=== PATIENT | male | born 1940 | race Caucasian/White ===

== ENCOUNTER 2017-12-25 10:34 | Day surgery (SDC) | payer MEDICARE, OTHER ==
[~2017-12-25 10:34] MED LIST: ACETAMINOPHEN 325 MG TABLET PO PRN; ACETYLCHOLINE CHLORIDE 20 DROP KIT IO PRN; BUPIVACAINE HCL/PF 30 ML VIAL IJ PRN; CYCLOPENTOLATE HCL 20 DROP BTL RIGHTEYE PRN; DEXTROSE 5%-0.5 NORMAL SALINE 1,000 ML IV PRN; EPINEPHrine 1 MG/ML AMPUL IO PRN; HYALURONATE SODIUM 0.4 ML DISP.SYRIN IO PRN; HYALURONATE SODIUM 0.85 ML DISP.SYRIN IO PRN; LIDOCAINE HCL/PF 200 MG/5 ML AMPUL TP PRN; LIDOCAINE HCL/PF 5 ML VIAL IO PRN; NORMAL SALINE 3 ML BOX IV PRN; TETRACAINE HCL 150 DROP BTL OP PRN
[2017-12-25] MEDS: PHENYLEPHRINE HCL 50 DROP BTL RIGHTEYE PRN ×3 (11:45→12:29)
[2017-12-25] MEDS: TROPICAMIDE 150 DROP BTL RIGHTEYE PRN ×3 (11:45→12:29)
[2017-12-25] MEDS ORDERED: DEXTROSE 5%-0.5 NORMAL SALINE 1,000 ML IV ONE (11:50)
[2017-12-25 14:46] VITALS: BP 183/69
== END 2017-12-25 10:35 | disposition home or self-care (01) ==
LOC: AMB 10:34
PROVIDERS: ATTEND Ophthalmology
PROC: 08RJ3JZ Replacement of Right Lens with Synthetic Substitute, Percutaneous Approach (ICD-10-PCS; principal; 2017-12-25)
DX: H26.8 Other specified cataract (principal); I10 Essential (primary) hypertension; E78.5 Hyperlipidemia, unspecified; Z87.891 Personal history of nicotine dependence; Z68.24 Body mass index [BMI] 24.0-24.9, adult

== ENCOUNTER 2018-09-23 10:39 | Inpatient (IN) | payer MEDICARE, OTHER ==
--- NOTE | 2018-09-23 10:52 | ERNOTE ---
Medical Problem HPI - Narrative Date of Service: 09/23/18 - General Chief Complaint: General Assessment Time Seen by Provider: 09/23/18 10:52 Source: patient Exam Limitations: no limitations - Immun/Allergies/Home Medications Immunizations: IMMUNIZATION HX History of Influenza Vaccine No Hx Pneumococcal Vaccination No Allergies/Adverse Reactions: Allergies diclofenac Adverse Reaction (Intermediate, Verified 09/23/18 13:02) BP "WILI ROCKETS" Home Medications: HOME MEDICATIONS Latanoprost [Xalatan] 1 drop EACHEYE HS 08/03/16 [Last Taken Unknown] Lisinopril [Zestril] 40 mg PO DAILY 08/03/16 [Last Taken 01/22/18 07:30] - Pain Score Pain Score #1 Pain Score: 0 - History of Present History Narrative: The patient is a 78 year old male who presents for numbness to fingers and toes bilateral which has been present since 0530. There are no associated symptoms. The patient denies pain. There are no alleviating factors. There are no aggravating factors. Previous treatments have included: none. The past medical history includes: HTN and cataract. The social history is negative. The patient has had no ill contacts. Patient states that when he awoke to use the restroom this am at 0530 he noticed numbness to bilateral hands and feet. Patient denies weakness or difficulty with ambulation. Patient upon arrival having left arm and left leg weakness with drift. Patient also appears slower to respond to questions but remains oriented x3. Patient states that he slid out of bed approximately 18 inches to floor 3 days ago without injury. Review of Systems - Review of Systems Constitutional: Present: no symptoms reported. Absent: recent illness, fever, weakness EYE: Present: no symptoms reported. Absent: vision changes ENT: Present: no symptoms reported. Absent: ear pain, nasal drainage, sore throat Respiratory: Present: no symptoms reported. Absent: shortness of breath, cough Cardiology: Present: no symptoms reported. Absent: chest pain Gastrointestinal/Abdominal: Present: no symptoms reported. Absent: nausea, vomiting, diarrhea, abdominal pain Genitourinary: Present: no symptoms reported. Absent: dysuria Musculoskeletal: Present: no symptoms reported Skin: Present: no symptoms reported. Absent: rash Neurological: Present: numbness, tingling. Absent: dizziness/light-headedness, weakness Endocrine: Present: no symptoms reported Hematologic/Lymphatic: Present: no symptoms reported Psych: Present: no symptoms reported All Other Systems: All systems neg except as marked Medical History (Last Reviewed 09/23/18 @ 11:03 by MATEO Marquez) Hypertension Cataract Surgical History: Surgical History (Last Reviewed 09/23/18 @ 11:03 by MATEO Marquez) H/O arthroscopic knee surgery Social History: Preferred Language Fijian Abuse History No History of abuse Psych History No pertinent hx Alcohol Use none Drug Use none No Social History Section defined Physical Exam - Physical Exam General Appearance: Present: wd/wn, alert, no apparent distress Head Exam: Present: normal inspection, no evidence of injury Eye Exam: Normal inspection: bilateral, PERRL: bilateral, EOMI: bilateral Ears, Nose, Throat: Present: normal ENT inspection, normal pharynx Neck: Present: normal inspection Respiratory: Present: no respiratory distress, normal breath sounds, lungs clear Cardiovascular/Chest: Present: regular rate, rhythm, no murmur, extra beats - PVCs Peripheral Pulses: N=norm/S=strong/W=weak/B=bound/A=absent: Radial (R): Normal Gastrointestinal/Abdominal: Present: normal bowel sounds, nontender, nondistended, soft, no organomegaly Neurological Exam: Present: alert, oriented, normal mood/affect, motor weakness - left upper and lower extremity weakness, left sided drift Skin Exam: Present: normal color, warm/dry ED Progress - Date and Time Seen: Date and Time: 09/23/18 11:39 Discussed care with . Plan for admission with inpatient MRI tomorrow. - Results and Orders Patient's Lab Results:: I have reviewed the patient's lab results. - Vital Signs Patient's Vital Signs:: I have reviewed the patient's vital signs. Vital Signs: Vital Signs 09/23/18 10:43 09/23/18 10:48 Temperature 36.7 C Pulse Rate 72 71 Respiratory Rate 12 13 Blood Pressure 208/84 H O2 Sat by Pulse Oximetry 97 97 - EKG EKG: NSR, other - PVC's EKG read: Reviewed by me EKG Comments: Reviewed with . - CT/Ultrasound CT/Ultrasound Narrative: Argus interpretation: No acute intracranial hemorrhage or mass-effect. - Progress/Reassessment Chief Complaint: General Assessment Progress:: Unchanged Plan - Plan Plan: Patient will be admitted for observation with follow up inpatient MRI. Departure Clinical Impression: Stroke-like symptoms, Weakness Hypertension Qualifiers: Hypertension type: essential hypertension Qualified Code(s): I10 - Essential (primary) hypertension - Departure Disposition: Still a patient Condition: Stable NIHSS - Date/Time of assessment Stroke Scale Time: 11:00 - NIH Stroke Scale Level of Consciousness: Alert LOC Questions (Year and Age): Answers both correctly LOC Commands (open/close eyes/fist): Performs both correctly Lateral Gaze Paresis: None Visual Field Loss: No visual loss Facial Palsy: Normal movement Right Arm Motor (10 sec hold): No drift Left Arm Motor (10 sec hold): Drift, effort made Right Leg Motor (5 sec hold): No drift Left Leg Motor (5 sec hold): Drift, effort made Limb Ataxia (finger/nose heel/smith): Present in 2 limbs If present, ataxia in:: Left arm, Left leg Sensory Loss (pinprick arms/legs/face): No sensory loss Language Aphasia (description/naming/reading): No aphasia; normal Dysarthria (speech clarity): Normal articulation Neglect Inattention (visual/tactile/auditory/spatial/person): No neglect Initial Stroke Scale Score:: 6
[2018-09-23 11:21] LABS: Hematocrit 48.5 % (42.0-52.0); Mean Cell Volume 85.7 fl (78-100); Mean Corpuscular Hgb Conc 35.1 g/dl (32-36); Mean Platelet Volume 8.6 fl (8-11.3); Neutrophil # 4.8 K/mm3 (1.3-6.0); Neutrophil % 74.4 % (42-75.0); Platelet Count 249 K/mm3 (150-450); Red Blood Count 5.66 M/mm3 (4.7-6.0); White Blood Count 6.5 K/mm3 (4.0-10.5)
[2018-09-23 11:43] LABS: Prothrombin Time (Patient) 10.7 Seconds (9.0-11.0)
[2018-09-23 11:44] LABS: INR 1.07 INR (0.90-1.10); Partial Thrombolplastin Time 25.9 Seconds (24-32)
[2018-09-23 11:47] LABS: Albumin * 4.3 gm/dl (3.4-5.0); Anion Gap 12.2 mmol/L (6.8-13.8); BUN/Creatinine Ratio 11.8 (9.0-21.6); Bilirubin, Total 1.3 mg/dL (0.0-1.1); Ca. Corrected For Albumin 7.9 mg/dL (8.4-10.2); Calcium * 8.5 mg/dL (7.9-10.9); Potassium 4.2 mmol/L (3.4-4.6); Total Protein 8.2 gm/dL (6.2-8.2)
[2018-09-23] MEDS ORDERED: LABETALOL HCL 5 MG/ML VIAL IV ONE ×2 (12:17→12:18)
[2018-09-23] MEDS ORDERED: ASPIRIN 325 MG TABLET.DR PO ONE (14:03)
--- NOTE | 2018-09-23 14:45 | HP ---
Chief Complaint - Chief Complaint Date of Service: 09/23/18 Time of Service: 14:20 Chief Complaint: left sided weakness History of Present Illness: Patient with PMHx of HTN woke today with numbness in his fingers and toes, and urinary incontinence. None of this has happened to him in the past. Symptoms have not significantly improved. Negative CT head. Family members have had a virus lately. Family members notice he is slow to answer questions, which is highly unusual for him. No significant abnormalities on labs. His BP is elevated, to 208/105, and received a small dose of labetalol in the ED. Medical History (Last Reviewed 09/23/18 @ 13:03 by Mariza Pineda RN) Hypertension Cataract Surgical History: Surgical History (Last Reviewed 09/23/18 @ 13:03 by Mariza Pineda RN) H/O arthroscopic knee surgery Social History: Patient Lives/Resources Home Utilized Preferred Language Stateless Do you have any confucianist or No cultural preference? Smoking Status Former smoker Have you smoked in the past 12 No months Abuse History No History of abuse Psych History No pertinent hx Alcohol Use none Drug Use none No Social History Section defined Review Of Systems (GEN) - Review of Systems Generalized/Overall Review: Absent: Fever Respiratory: Absent: Cough, Shortness of Breath Cardiac: Absent: Chest Pain, Edema, Syncope Abdominal: Absent: Nausea, Vomiting, Diarrhea Genitourinary: Present: Incontinent Neurological: Present: Numbness, Weakness - left sided. Absent: Seizure Immunizations: IMMUNIZATION HX History of Influenza Vaccine No Hx Pneumococcal Vaccination No Allergies/Adverse Reactions: Allergies Allergy/AdvReac Type Severity Reaction Status Date / Time diclofenac AdvReac Intermediate BP "WILI Verified 09/23/18 13:02 ROCKETS" Home Medications: HOME MEDICATIONS Latanoprost [Xalatan] 1 drop EACHEYE HS 08/03/16 [Last Taken Unknown] Lisinopril [Zestril] 40 mg PO DAILY 08/03/16 [Last Taken 01/22/18 07:30] Exam - Exam Vital Signs: Vital Signs - Last Taken Temp 36.8 C 09/23/18 12:54 Pulse 68 09/23/18 13:22 Resp 16 09/23/18 12:54 BP 191/98 H 09/23/18 12:54 Pulse Ox 96 09/23/18 12:54 Constitutional: Present: Alert, Oriented x3, Cooperative, Well developed, No di stress ENT Exam: Present: hearing grossly normal Eye Exam: bilateral eye: EOMI Neck: Absent: lymphadenopathy (R), lymphadenopathy (L) Respiratory: Present: lungs clear, normal breath sounds, no respiratory distress Cardiovascular/Chest: Present: regular rate, rhythm Abdomen: Present: soft, nontender Extremity: Present: no pedal edema 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, normal mood/affect, oriented x 3, abnormal cerebellar tests - he is able to do [id number], but his left hand wanders before meeting my finger Unable to rapidly alternate fingertips to thumb tip of left hand, other - slow to answer questions Eye contact: Present: cooperative, good eye contact Diagnostic Studies: Abnormal Lab Results 09/23/18 09/23/18 Range/Units 11:13 11:13 Immature Gran % (Auto) 0.50 H (0.001-0.429) % Lymphocytes % 18.5 L (20-51) % Lymphocytes # 1.20 L (1.5-3.5) k/mm3 Random Glucose 113 H (70-110) mg/dL Calcium Adj for Albumin 7.9 L (8.4-10.2) mg/dL Total Bilirubin 1.3 H (0.0-1.1) mg/dL Laboratory Results WBC 6.5 K/mm3 (4.0-10.5) 09/23/18 11:13 RBC 5.66 M/mm3 (4.7-6.0) 09/23/18 11:13 Hgb 17.0 gm/dL (13.5-18.0) 09/23/18 11:13 Hct 48.5 % (42.0-52.0) 09/23/18 11:13 MCV 85.7 fl (78-100) 09/23/18 11:13 MCH 30.0 pg (27-31) 09/23/18 11:13 MCHC 35.1 g/dl (32-36) 09/23/18 11:13 RDW 13.0 % (11.5-14.0) 09/23/18 11:13 Plt Count 249 K/mm3 (150-450) 09/23/18 11:13 MPV 8.6 fl (8-11.3) 09/23/18 11:13 Immature Gran % (Auto) 0.50 % (0.001-0.429) H 09/23/18 11:13 Immature Gran # (Auto) 0.03 K/mm3 (0.000-0.0310) 09/23/18 11:13 Neutrophils % 74.4 % (42-75.0) 09/23/18 11:13 Lymphocytes % 18.5 % (20-51) L 09/23/18 11:13 Monocytes % 5.7 % (0.0-9) 09/23/18 11:13 Eosinophils % 0.3 % (0.0-3.0) 09/23/18 11:13 Basophils % 0.6 % (0.0-1.0) 09/23/18 11:13 Nucleated RBC % 0.0 k/mm3 (0-1) 09/23/18 11:13 Neutrophils # 4.8 K/mm3 (1.3-6.0) 09/23/18 11:13 Lymphocytes # 1.20 k/mm3 (1.5-3.5) L 09/23/18 11:13 Monocytes # 0.4 k/mm3 (0.0-1.0) 09/23/18 11:13 Eosinophils # 0.0 k/mm3 (0.0-0.7) 09/23/18 11:13 Absolute Basophils 0.0 k/mm3 (0.0-0.1) 09/23/18 11:13 ESR 0 mm/hr (0-10) 09/23/18 11:13 PT 10.7 Seconds (9.0-11.0) 09/23/18 11:13 INR (Anticoag Therapy) 1.07 INR (0.90-1.10) 09/23/18 11:13 PTT ([place]) 25.9 Seconds (24-32) 09/23/18 11:13 Sodium 137 mmol/L (132-142) 09/23/18 11:13 Plasma Sodium 137 mmol/L (130-142) 09/23/18 11:13 Potassium 4.2 mmol/L (3.4-4.6) 09/23/18 11:13 Chloride 102 mmol/L (97-106) 09/23/18 11:13 Carbon Dioxide 27.0 mmol/L (24-32.6) 09/23/18 11:13 Anion Gap 12.2 mmol/L (6.8-13.8) 09/23/18 11:13 BUN 13 mg/dL (6-23) 09/23/18 11:13 Creatinine 1.10 mg/dL (0.4-1.4) 09/23/18 11:13 Est GFR (Non-Af Amer) 69 mL/min (60-130) 09/23/18 11:13 BUN/Creatinine Ratio 11.8 (9.0-21.6) 09/23/18 11:13 Random Glucose 113 mg/dL (70-110) H 09/23/18 11:13 Calcium 8.5 mg/dL (7.9-10.9) 09/23/18 11:13 Calcium Adj for Albumin 7.9 mg/dL (8.4-10.2) L 09/23/18 11:13 Total Bilirubin 1.3 mg/dL (0.0-1.1) H 09/23/18 11:13 AST 24 U/L (0-48) 09/23/18 11:13 ALT 29 U/L (19-67) 09/23/18 11:13 Alkaline Phosphatase 88 U/L (50-170) 09/23/18 11:13 Total Protein 8.2 gm/dL (6.2-8.2) 09/23/18 11:13 Albumin 4.3 gm/dl (3.4-5.0) 09/23/18 11:13 Assessment/Plan - Assessment/Plan (1) Stroke-like symptoms Assessment: Physical exam findings support acute CVA. He was not a candidate for TPA, since he woke with the symptoms. Will administer 325 mg aspirin, and start rosuv astatin. If allowed, will obtain MRI tomorrow. Remote appearing lacunar infarct on CT. His BP is elevated, and will gently decrease. Will need follow up with neurology after discharge. Problem: Acute (2) Hypertension Assessment: Initial BP of 208/84 in the ED. Will gradually decrease his BP. He has a AAA, so will have a goal of 170-180 systolic until tomorrow. Problem: Chronic (3) Weakness Assessment: PT/OT have been ordered. Problem: Acute (4) AAA (abdominal aortic aneurysm) without rupture Assessment: Would prefer not to have highly elevated BP since he has a AAA, but can not d ecrease his BP too quickly. CT from December 2017 showed the AAA was 4.3 cm, infrarenal. Problem: Acute
[2018-09-23] MEDS: ROSUVASTATIN CALCIUM 20 MG TABLET PO SCH (14:53)
[2018-09-23] MEDS ORDERED: LATANOPROST 25 DROP BTL EACHEYE SCH (21:00)
[2018-09-24 07:40] LABS: Urine Bilirubin Negative (NEGATIVE); Urine Ketone Negative (NEGATIVE); Urine Nitrite Negative (NEGATIVE); Urine Protein Negative (NEGATIVE); Urine Urobilinogen Normal (NORMAL); Urine pH 6.5 pH (5.0-7.0)
[2018-09-24 08:02] LABS: Urine Appearance Slightly Cloudy (CLEAR); Urine Bacteria None Seen; Urine Blood Negative /ul (NEGATIVE); Urine Color Yellow; Urine Fine Granular Cast TRACE /LPF; Urine RBC None Seen /hpf (0-5); Urine WBC 0-5 /hpf (0-5)
[2018-09-24] MEDS: ROSUVASTATIN CALCIUM 20 MG TABLET PO SCH (08:51)
[2018-09-24] MEDS ORDERED: LISINOPRIL 40 MG TABLET PO SCH (09:00)
--- NOTE | 2018-09-24 09:02 | PN ---
Subjective - Date and Time Seen Date: 09/24/18 Time: 08:52 Subjective Narrative: No change in his neuro status. Is still having some urinary incontinence. Underwent MRI this morning. He understands that he has had a stroke. Symptoms haven't improved. 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 Kendall. He was previously on 20 mg atorvastatin, but had leg cramps. He agreed to taking it a couple of times a week. Objective - Review of Systems Generalized/Overall Review: Denies: Fever Respiratory: Denies: Cough Cardiac: Denies: Chest Pain, Edema Abdominal: Denies: Vomiting Genitourinary Symptoms: Reports: Incontinent Neurological: Reports: Weakness - left side - Vitals Vitals: Last Vital Signs Temp 36.9 C 09/24/18 07:15 Pulse 54 L 09/24/18 07:15 Resp 14 09/24/18 07:15 BP 189/95 H 09/24/18 07:15 Pulse Ox 97 09/24/18 07:15 - Abnormal Lab Findings Abnormal Lab Findings: Abnormal Lab Results 09/23/18 09/23/18 Range/Units 11:13 11:13 Immature Gran % (Auto) 0.50 H (0.001-0.429) % Lymphocytes % 18.5 L (20-51) % Lymphocytes # 1.20 L (1.5-3.5) k/mm3 Random Glucose 113 H (70-110) mg/dL Calcium Adj for Albumin 7.9 L (8.4-10.2) mg/dL Total Bilirubin 1.3 H (0.0-1.1) mg/dL - Exam Constitutional: Present: Alert, Oriented x3, Cooperative, Well developed, No distress Respiratory: Present: normal breath sounds, no respiratory distress Cardiovascular/Chest: Present: regular rate, rhythm Abdomen: Present: Normal bowel sounds, soft, nontender Extremity: Absent: lower extremity edema 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 Difficulty with left hand fingertips to thumb, left hand wanders, but can do finger nose finger. Eye contact: Present: cooperative, good eye contact Assessment/Plan - Problems/Diagnosis (1) Acute CVA (cerebrovascular accident) Problem: Acute Narrative: MRI this morning shows an acute infarct in the region of his right MCA. No change in his neuro status. He does not take aspirin at baseline, but took some the day of admission yesterday, and was given 325 mg last night. Will continue 81 mg aspirin. Discussed the importance of a statin, and he is willing to take 20 mg 1-2 times a week. Carotid US and echo with bubble study pending. PT and OT ordered. (2) Hypertension Problem: Chronic Narrative: BP tends to be higher with acute CVA, and his BP has been in the 180s and 190s. Will gradually decrease. Takes lisinopril at home, which is currently held. (3) Weakness Problem: Acute (4) AAA (abdominal aortic aneurysm) without rupture Problem: Acute
--- NOTE | 2018-09-24 09:31 | PN ---
Progess Note - Interim Date: 09/24/18 Time: 09:30 Narrative: 09/24/18 09:30 Went to discuss MRI results with patient, and he states he was not feeling well and nauseated, also very weak. Lungs clear, heart sounds regular. Will check BP and glucose, and ordered CBC, CMP, troponin, EKG.
[2018-09-24 09:48] LABS: Hematocrit 49.5 % (42.0-52.0); Hemoglobin 17.2 gm/dL (13.5-18.0); Mean Cell Volume 87.5 fl (78-100); Mean Corpuscular Hemoglobin 30.4 pg (27-31); Mean Corpuscular Hgb Conc 34.7 g/dl (32-36); Neutrophil # 7.7 K/mm3 (1.3-6.0); Neutrophil % 74.6 % (42-75.0); Platelet Count 267 K/mm3 (150-450); Red Blood Count 5.66 M/mm3 (4.7-6.0); Red Cell Distribution Width 13.2 % (11.5-14.0); White Blood Count 10.3 K/mm3 (4.0-10.5)
[2018-09-24] MEDS ORDERED: NORMAL SALINE 1,000 ML IV PRN (10:01)
[2018-09-24 10:07] LABS: BUN/Creatinine Ratio 10.9 (9.0-21.6); Blood Urea Nitrogen 15 mg/dL (6-23); Calcium * 8.9 mg/dL (7.9-10.9); Carbon Dioxide 25.2 mmol/L (24-32.6); Chloride 100 mmol/L (97-106); Estimated Creat Clear 47.3; Glucose * 130 mg/dL (70-110); Potassium 4.2 mmol/L (3.4-4.6); Sodium 137 mmol/L (132-142)
[2018-09-24 10:09] LABS: Troponin I Less than 0.017 ng/mL (0.00-0.10)
[2018-09-24 12:20] VITALS: BP 175/116
--- NOTE | 2018-09-24 12:31 | DS ---
Transfer Discharge Summary - Diagnosis(s)/Problems (1) Acute CVA (cerebrovascular accident) Problem: Acute (2) Hypertension Problem: Chronic (3) Weakness Problem: Acute (4) AAA (abdominal aortic aneurysm) without rupture Problem: Acute - Course Description of Stay: Patient with PMHx of HTN woke on the morning of 09/23 with left sided weakness. In the ED, his head CT was negative and he was admitted for neuro checks. BP was elevated, with systolic pressures in the 180's-190's. He had urinary incontinence, and was delayed in answering questions, which is abnormal for him per family. MRI obtained the following day, which was positive for acute CVA in the region of his right MCA. There were no changes in his neuro exam. Shortly after returning back to his room, he complained of feeling very weak and nauseated. His BP was 105/54. He had gotten 40 mg lisinopril approximately 1/2 hour prior. He was given a bolus of fluid, and transfer process initiated due to his change in hemodynamic status. Carotid US showed 70-79% stenosis bilaterally. Echo was ordered, but not obtained prior to him leaving. Procedures Performed: none - Results and Findings Results and Findings: Laboratory Results - last 24 hr 09/24/18 09/24/18 09/24/18 07:27 09:46 09:46 WBC 10.3 D RBC 5.66 Hgb 17.2 Hct 49.5 MCV 87.5 MCH 30.4 MCHC 34.7 RDW 13.2 Plt Count 267 MPV 9.0 Immature Gran % (Auto) 0.40 Immature Gran # (Auto) 0.04 H Neutrophils % 74.6 Lymphocytes % 17.5 L Monocytes % 7.1 Eosinophils % 0.2 Basophils % 0.2 Nucleated RBC % 0.0 Neutrophils # 7.7 H Lymphocytes # 1.80 Monocytes # 0.7 Eosinophils # 0.0 Absolute Basophils 0.0 Sodium 137 Plasma Sodium 137 Potassium 4.2 Chloride 100 Carbon Dioxide 25.2 Anion Gap 16.0 H BUN 15 Creatinine 1.37 Est GFR (Non-Af Amer) 53 L D BUN/Creatinine Ratio 10.9 Random Glucose 130 H Calcium 8.9 Troponin I Less than 0.017 Urine Color Yellow Urine Appearance Slightly cloudy Urine pH 6.5 Ur Specific [place] 1.020 Urine Protein Negative Urine Glucose (UA) Negative Urine Ketones Negative Urine Blood Negative Urine Nitrate Negative Urine Bilirubin Negative Urine Urobilinogen Normal Ur Leukocyte Esterase Negative Urine RBC None seen Urine WBC 0-5 Ur Epithelial Cells 0-5 Urine Bacteria None seen Fine Granular Casts Trace Urine Culture Comments No culture indicated - Medications Medications: Active Medications Discontinued Medications Aspirin (Aspirin Enteric Coated) 325 mg PO ONCE ONE Stop: 09/23/18 14:04 Last Admin: 09/23/18 14:12 Dose: 325 mg Sodium Chloride (Sodium Chloride 0.9%) 1,000 mls @ 999 mls/hr IV .Q1H1M PRN PRN Reason: HYDRATION Stop: 10/24/18 10:02 Last Infusion: 09/24/18 11:03 Dose: Infused Labetalol HCl (Trandate) 10 mg IV ONCE ONE Stop: 09/23/18 12:18 Last Admin: 09/23/18 12:19 Dose: 10 mg Latanoprost (Xalatan) 1 drop EACHEYE HS ON LICENSE OF [facility] Stop: 10/23/18 21:01 Last Admin: 09/23/18 20:16 Dose: 1 drop Lisinopril (Zestril) 40 mg PO DAILY ON LICENSE OF [facility] Stop: 10/24/18 09:01 Last Admin: 09/24/18 08:51 Dose: 40 mg Rosuvastatin Calcium (Crestor) 20 mg PO DAILY ON LICENSE OF [facility] Stop: 10/23/18 14:31 Last Admin: 09/24/18 08:51 Dose: 20 mg - Disposition Disposition: Short Term Hospital Inpatient Condition: Stable Discharge Date: 09/24/18 Discharge Time: 12:00
== END 2018-09-24 12:10 | disposition short-term general hospital (02) | DRG 947 ==
LOC: ER 10:39 → MS 10:39 → OBSVTOIN 12:03 → MS 12:50
PROVIDERS: ADMIT Family Medicine; ATTEND Family Medicine
CPT/HCPCS: 36415; 70450; 70553; 71010; 71045; 80048; 80053; 81001; 84484; 85025; 85610; 85652; 85730; 93005; 93880; 96374; 99285